=== PATIENT | female | born 1970 | race Caucasian/White ===

== ENCOUNTER 2022-08-06 00:34 | Emergency (ER) | payer OTHER ==
[~2022-08-06] VITALS: Ht 160 cm; Wt 59.0 kg
[2022-08-06] MEDS ORDERED: LISI20 PO ×2 (01:11→02:39)
[2022-08-06] MEDS ORDERED: Toprol Xl25 MG PO (01:11)
[2022-08-06] MEDS ORDERED: METO25ER PO (02:39)
[2022-08-06] MEDS ORDERED: AMOX500 PO (02:39)
== END 2022-08-06 03:00 | disposition home or self-care (01) ==
LOC: ER 00:34
DX: J02.0 Streptococcal pharyngitis (principal); Z76.0 Encounter for issue of repeat prescription; I10 Essential (primary) hypertension; F17.210 Nicotine dependence, cigarettes, uncomplicated; Z79.899 Other long term (current) drug therapy
CPT/HCPCS: 87430; A9270